=== PATIENT | female | born 1945 | race Caucasian/White ===

== ENCOUNTER 2018-03-08 15:54 | Emergency (ER) | payer MEDICARE ==
--- NOTE | 2018-03-08 16:27 | UC ---
Abdominal Pain Female HPI - HPI Summary HPI Summary: Started this morning with epigastric abdominal pain radiating around the sides and into the chest. Aching pain now becoming sharper. No SOB. Nausea with vomiting. No diarrhea. - History of Current Complaint Chief Complaint: UCGeneralIllness Stated Complaint: STOMACH AND PAIN Time Seen by Provider: 03/08/18 16:06 Hx Obtained From: Patient Onset/Duration: Sudden Onset, Lasting Hours - 5, Worse Since - onset Severity Initially: Mild Severity Currently: Severe Pain Intensity: 10 Location: Epigastric Radiates to: Flank, Chest Character: Aching, Sharp Aggravating Factor(s): Nothing Alleviating Factor(s): Nothing Associated Signs and Symptoms: Positive: Chest Pain, Nausea, Vomiting. Negative : Fever, Diarrhea Allergies/Adverse Reactions: Allergies Allergy/AdvReac Type Severity Reaction Status Date / Time cephalexin Allergy Hives Verified 03/08/18 16:04 dofetilide [From Tikosyn] Allergy Tachycardia Verified 03/08/18 16:04 moxifloxacin [From Avelox] Allergy Hives Verified 03/08/18 16:04 PMH/Surg Hx/FS Hx/Imm Hx Cardiovascular History: Hypertension, Atrial Fibrillation Respiratory History: COPD - Surgical History Surgical History: Yes Surgery Procedure, Year, and Place: HIATAL HERNIA. RIGHT SHOULDER SURGERY. CARDIOVERSION WITH ABLASION 08/2015-11/2015. DEVIATED SEPTUM. WISDOM TEETH. Rt BREAST BIOPSY - W/ BIOPSY CLIP. cataract. - Family History Known Family History: Positive: Diabetes - Social History Occupation: Retired Alcohol Use: Rare Substance Use Type: None Smoking Status (MU): Never Smoked Tobacco - Immunization History Most Recent Influenza Vaccination: refuses Most Recent Tetanus Shot: 2014 Most Recent Pneumonia Vaccination: at some point Review of Systems Gastrointestinal: Abdominal Pain, Vomiting, Nausea Is Patient Immunocompromised?: No All Other Systems Reviewed And Are Negative: Yes Physical Exam Triage Information Reviewed: Yes Appearance: Ill-Appearing, Pain Distress, Obese Vital Signs: Initial Vital Signs Temp 97.1 F 03/08/18 16:07 Pulse 69 03/08/18 16:07 Resp 17 03/08/18 16:07 BP 151/69 03/08/18 16:07 Pulse Ox 99 03/08/18 16:07 Vital Signs Reviewed: Yes Eyes: Positive: Conjunctiva Inflamed ENT: Positive: TMs normal Neck exam: Normal Respiratory Exam: Normal Cardiovascular Exam: Normal Abdomen Description: Negative: Nontender - Tender epigastric, McBurney's Point Tenderness, Peritoneal Signs Bowel Sounds: Positive: Present Musculoskeletal Exam: Normal Neurological Exam: Normal Psychological Exam: Normal Skin Exam: Normal Abd Pain Female Course/Dx - Differential Dx/Diagnosis Differential Diagnosis: ACS, Diverticulitis, Gall Bladder Disease, Pancreatitis , Renal Colic Provider Diagnoses: Acute epigatric abdominal pain - Physician Notification/Consults Discussed Care of Patient With: Dr. Owens Time Discussed With Above Provider: 16:36 Instructed by Provider To: Transfer - to [facility] by private car Discharge - Sign-Out/Discharge Documenting (check all that apply): Discharge/Admit/Transfer - Discharge Plan Condition: Guarded Disposition: TRANS HIGHER LVL OF CARE FAC Patient Education Materials: Acute Abdominal Pain (ED) Referrals: Aden Pickett MD [Primary Care Provider] - Additional Instructions: Go straight to the ER. - Billing Disposition and Condition Condition: GUARDED Disposition: Trans Higher Lvl of Care Fac
[2018-03-08 16:55] VITALS: BP 118/44
== END 2018-03-08 16:53 | disposition short-term general hospital (02) ==
LOC: UCCORT 15:54
DX: R10.13 Epigastric pain (principal); Z88.1 Allergy status to other antibiotic agents; Z88.8 Allergy status to other drugs, medicaments and biological substances; I10 Essential (primary) hypertension
CPT/HCPCS: 93005; 99213; G0463

== ENCOUNTER 2019-08-30 07:49 | Emergency (ER) | payer MEDICARE ==
[2019-08-30 08:06] VITALS: BP 166/72
--- NOTE | 2019-08-30 08:41 | UC ---
Throat Pain/Nasal Simon HPI - HPI Summary HPI Summary: 73 year old female with PMH + for successful ablation of a fib, hrt murmur, asthma (no meds, only problematic when sick) presents with night sweats x 2 weeks, sinus congestion, ear fullness, post nasal drip, sinus pressure/ pain x 5 days. no fever, ? chills. symptoms not improving. no recent ABX. on coumadin. Point Clear a "wheeze" last night, none now, no SOB, no chest pain - History of Current Complaint Chief Complaint: UCRespiratory Stated Complaint: SWEATING/CONGEST Time Seen by Provider: 08/30/19 08:07 Hx Obtained From: Patient ?: No Onset/Duration: Sudden Onset, Lasting Weeks Pain Intensity: 0 Pain Scale Used: 0-10 Numeric Cough: None - minimal Associated Signs & Symptoms: Positive: Sinus Discomfort, Nasal Discharge. Negative: Dysphagia, Drooling, Wheezing, Hoarseness, Fever, Vomiting, Rash - Allergies/Home Medications Allergies/Adverse Reactions: Allergies Allergy/AdvReac Type Severity Reaction Status Date / Time cephalexin Allergy Hives Verified 08/30/19 07:58 dofetilide [From Tikosyn] Allergy Tachycardia Verified 08/30/19 07:58 moxifloxacin [From Avelox] Allergy Hives Verified 08/30/19 07:58 Home Medications: Home Medications Calc/D3/Magnes/B6/Zn/Cu/Ann [[facility] Calcium Cit-Vit D3-Mag Tab] 1 tab PO DAILY 08/30/19 [History Confirmed 08/30/19] Cyanocobalamin TAB* [Vitamin B12 TAB*] 500 mcg PO DAILY 08/30/19 [History Confirmed 08/30/19] Famotidine TAB* [Pepcid 20 MG TAB*] 20 mg PO DAILY 08/30/19 [History Confirmed 08/30/19] Valsartan TAB* [Diovan TAB*] 80 mg PO DAILY 08/30/19 [History Confirmed 08/30/19 ] PMH/Surg Hx/FS Hx/Imm Hx Previously Healthy: Yes - cardiac history Cardiovascular History: Cardiac Disease, Atrial Fibrillation - controlled Respiratory History: Pneumonia - ~ 5 years ago - Surgical History Surgical History: Yes Surgery Procedure, Year, and Place: HIATAL HERNIA, RIGHT SHOULDER SURGERY, CARDIOVERSION WITH ABLASION 08/2015-11/2015, DEVIATED SEPTUM, WISDOM TEETH, Rt BREAST BIOPSY - W/ BIOPSY CLIP. Bilat cataract., R knee- benign tumor removed - Family History Known Family History: Positive: Diabetes, Respiratory Disease - sister with COPD , Non-Contributory - Social History Occupation: Retired Alcohol Use: Rare Substance Use Type: None Smoking Status (MU): Never Smoked Tobacco - Immunization History Most Recent Influenza Vaccination: refuses Most Recent Tetanus Shot: 2014 Most Recent Pneumonia Vaccination: at some point Review of Systems All Other Systems Reviewed And Are Negative: Yes Constitutional: Positive: Chills. Negative: Fever, Fatigue Skin: Positive: Negative ENT: Positive: Sore Throat, Ear Ache, Nasal Discharge, Sinus Congestion, Sinus Pain/Tenderness Respiratory: Positive: Other - wheeze. Negative: Shortness Of Breath, Cough Neurological: Positive: Negative Psychological: Positive: Negative Is Patient Immunocompromised?: No Physical Exam Triage Information Reviewed: Yes Appearance: No Pain Distress, Well-Nourished, Ill-Appearing - minimal Vital Signs: Initial Vital Signs Temp 98.2 F 08/30/19 08:03 Pulse 69 08/30/19 08:03 Resp 18 08/30/19 08:03 BP 166/72 08/30/19 08:03 Pulse Ox 97 08/30/19 08:03 Vital Signs Reviewed: Yes Eyes: Positive: Conjunctiva Clear ENT: Positive: Hearing grossly normal, Pharynx normal, Nasal congestion, Nasal drainage, TMs normal, Sinus tenderness - max b/l, Uvula midline. Negative: Pharyngeal erythema, TM bulging, TM dull, TM red, Tonsillar swelling, Tonsillar exudate, Trismus, Muffled voice, Hoarse voice Neck: Positive: Supple, Nontender, No Lymphadenopathy. Negative: Nuchal Rigidity, Enlarged Nodes @ Respiratory: Positive: Chest non-tender, Lungs clear, Normal breath sounds, No respiratory distress, No accessory muscle use. Negative: Respiratory distress, Crackles, Rhonchi, Stridor, Wheezing Cardiovascular: Positive: RRR, No Murmur Abdomen Description: Negative: CVA Tenderness (R), CVA Tenderness (L) Neurological Exam: Normal Psychological Exam: Normal Skin Exam: Normal Throat Pain/Nasal Course/Dx - Course Course Of Treatment: Sinusitis: - Hold your calcium tablets while taking antibiotics - Blood work drawn, results should return within 1-2 days - Follow up with Dr. Kaba if no improvement within 2-3 days - GO to ER with increased shortness of breath, difficulty breathing, increased pain, fever. - Antibiotics as directed- may interfere with your coumadin levels- notify your provider. - Increase fluid intake - Increase rest - Over the counter medications for decongestion, symptom relief. Urine +- awaiting cultures - Differential Dx/Diagnosis Differential Diagnosis/HQI/PQRI: Otitis Media, Sinusitis, Tonsillitis, URI Provider Diagnosis: Sinusitis Discharge ED - Sign-Out/Discharge Documenting (check all that apply): Patient Departure All imaging exams completed and their final reports reviewed: No Studies - Discharge Plan Condition: Good Disposition: HOME Prescriptions: DOXYcycline CAP(*) [DOXYcycline 100MG CAP(*)] 100 mg PO BID #20 cap Patient Education Materials: Sinusitis (ED) Referrals: Aden Pickett MD [Primary Care Provider] - Additional Instructions: - Hold your calcium tablets while taking antibiotics - Blood work drawn, results should return within 1-2 days - Follow up with Dr. Kaba if no improvement within 2-3 days - GO to ER with increased shortness of breath, difficulty breathing, increased pain, fever. - Antibiotics as directed- may interfere with your coumadin levels- notify your provider. - Increase fluid intake - Increase rest - Over the counter medications for decongestion, symptom relief. - Awaiting for urine cultures - Billing Disposition and Condition Condition: GOOD Disposition: Home - Attestation Statements Provider Attestation: Per institutional requirements, I have reviewed the chart, however, I was not consulted specifically or made aware of this patient by the midlevel provider. I did not personally evaluate, interact with , or disposition this patient.
--- OUTSIDE RECORDS SUMMARY | 2019-08-30 09:19 | XMS REPORT | Continuity of Care Document ---
:1945 External Reference #:[id number] Author Name Brandin Javed MD Address [address] [place] [address] Care Team Providers Name Role Phone Aedn Pickett MD - Family Medicine Care Team Information Program Instructor Problems Active Problems Provider Date Benign essential hypertension Onset: 08/08/2016 Social History Type Date Description Comments Sex Unknown ETOH Use Denies alcohol use Tobacco Use Start: Unknown Patient has never smoked Recreational Drug Use Never Used Drugs Smoking Status Reviewed: 07/15/19 Patient has never smoked Exercise Type/Frequency Exercises regularly walking Allergies, Adverse Reactions, Alerts Active Allergies Reaction Severity Comments Date Avelox 08/08/2016 Tikosyn 08/08/2016 Mold 08/08/2016 Dust 08/08/2016 Trees 08/08/2016 Grass 08/08/2016 Sotalol 08/08/2016 Multaq 08/08/2016 Medications Active Medications SIG Qnty Indications Ordering Provider Date Dorzolamide HCL instill one drop 10ml H40.052 Brandin Javed MD 01/25/2019 2% left eye two Solution times a day. Losartan Potassium 1 po qd Unknown 100mg Tablets Lansoprazole 1 po qd Unknown 30mg Capsules DR Potassium Chloride ER 1 po qd Unknown 10Meq Tablets ER Warfarin Sodium 2 tablets mon, Unknown 2.5mg wed, fri, sat 1 Tablets tablet sun, tues, thurs Furosemide 1 po bid Unknown 20mg Tablets Cartia XT 1 po bid Unknown 120mg Caps ER 24HR Align 1 caps by mouth Unknown 4mg Capsules every day every morning Tylenol 8 Hour 1 tab by mouth Unknown Arthritis Pain every 6 hours 650mg pain, as needed Tablets ER Ranitidine 150 Maximum 1 by mouth every Unknown Strength day 150mg Tablets Immunizations Description No Information Available Vital Signs Date Vital Result Comment 04/08/2018 9:54am BP Systolic 124 mmHg BP Diastolic 86 mmHg Heart Rate 72 /min Respiratory Rate 17 /min Height 63 inches 5'3" Weight 215.00 lb BMI (Body Mass Index) 38.1 kg/m2 BSA (Body Surface Area) 1.99 m2 Brock body weight in kilograms 52 kg O2 % BldC Oximetry 97 % Results Description No Information Available Procedures Date Code Description Status 07/15/2019 08872 Eye Exam Est Patient Comprehensive Completed 03/08/2019 84842 Scanning Computerized Ophthalmic Diagnostic Imaging, Completed Posterior 03/08/2019 37997 Visual Field Exam Extended, Unilateral Or Bilateral Completed 03/08/2019 53236 Eye Exam Est Patient Comprehensive Completed 01/25/2019 98067 Eye Exam Est Patient Comprehensive Completed Medical Devices Description No Information Available Encounters Description No Information Available Assessments Date Code Description Provider 07/15/2019 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, left eye Brandin Javed MD 07/15/2019 H34.8120 Central retinal vein occlusion, left eye, with Brandin Javed MD macular edema 07/15/2019 Z96.1 Presence of intraocular lens Brandin Javed MD 03/08/2019 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, left eye Brandin Javed MD 03/08/2019 H34.8120 Central retinal vein occlusion, left eye, with Brandin Javed MD macular edema 03/08/2019 Z96.1 Presence of intraocular lens Brandin Javed MD 01/25/2019 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 Morillo as has been mentioned and previously arrangedLarge cyst present and literature indicate simple cysts are not malignant concern however position and size of this actually displaces the right kidney.Images reviewed with Alvina. Questions addressed. She reports she satisfied with the explanation offered here and we' ll continue to follow up with Dr. Morillo ( gastroenterology [facility]) . Continue to follow. As needed for this specific issue as the experience technically desirable butnecessary in addressing this sort of surgical issue isn't present here at the time being. Functional Status Description No Information Available Mental Status Description No Information Available Referrals Description No Information Available
[2019-08-30 14:56] LABS: ABS Basophils 0.1 10^3/ul (0-0.2); ABS Eosinophils 0.3 10^3/ul (0-0.6); ABS Lymphocytes 0.8 10^3/ul (1.0-4.8); ABS Monocytes 0.7 10^3/ul (0-0.8); ABS Neutrophils 4.2 10^3/ul (1.5-7.7); Eosinophil % 5.6 %; Hematocrit 39 % (35-47); Lymphocyte % 13.5 %; Mean Corpuscular HGB Conc 33 g/dL (31-36); Mean Corpuscular Hemoglobin 31 pg (27-31); Mean Corpuscular Volume 94 fL (80-97); Mean Platelet Volume 8.9 fL (7.4-10.4); Nucleated Red Blood Cells % 0.1; Platelet Count 246 10^3/uL (150-450); Red Blood Count 4.18 10^6 /uL (3.70-4.87); Red Cell Distribution Width 15 % (10-15); White Blood Count 6.2 10^3/uL (3.5-10.8)
[2019-08-30 16:37] LABS: TSH (Thyroid Stimulating Horm) 1.55 mcIU/mL (0.34-5.60)
[2019-08-30 18:28] LABS: Albumin 4.3 g/dL (3.2-5.2); Calcium 9.2 mg/dL (8.6-10.3); Potassium 4.8 mmol/L (3.5-5.0); Total Bilirubin 0.5 mg/dL (0.2-1.0)
[2019-08-30 18:34] LABS: Albumin/Globulin Ratio 1.9 (1-3); BUN/Creatinine Ratio 20.4 (8-20); EGFR African American 60.2 (>60); EGFR Non-African American 49.7 (>60); Globulin 2.3 g/dL (2-4); Total Protein 6.6 g/dL (6.4-8.9)
== END 2019-08-30 09:11 | disposition home or self-care (01) ==
LOC: UCCORT 07:49
DX: J32.9 Chronic sinusitis, unspecified (principal); J02.9 Acute pharyngitis, unspecified; Z88.1 Allergy status to other antibiotic agents; Z88.8 Allergy status to other drugs, medicaments and biological substances
CPT/HCPCS: 36415; 80053; 81003; 83880; 84443; 85025; 87086; 99212; G0463

== ENCOUNTER 2019-10-07 08:05 | Emergency (ER) | payer MEDICARE ==
--- OUTSIDE RECORDS SUMMARY | 2019-10-07 08:15 | XMS REPORT | Continuity of Care Document ---
:1945 External Reference #:[id number] Author Name Marta Fam N.P. 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 Onset: 10/27/2015 Asthma Guevara Godinez M.D. Onset: 10/27/2015 Disturbance in sleep behavior Ely Chaidez MD Onset: 11/27/2015 Obesity Ely Chaidez MD Onset: 11/27/2015 Obstructive sleep apnea syndrome Ely Chaidez MD Onset: 03/04/2016 Disorder of lung Ely Chaidez MD Onset: 03/04/2016 Liver cyst Ely Chaidez MD Onset: 05/20/2016 Full respiratory system examination Ely Chaidez MD Onset: 04/01/2017 Social History Type Date Description Comments Sex Unknown Tobacco Use Start: Unknown Never Smoked Cigarettes Tobacco Use Start: Unknown Never Smoked Cigars Tobacco Use Start: Unknown Never Smoked A Pipe Smokeless Tobacco Never Used Smokeless Tobacco ETOH Use Denies alcohol use Recreational Drug Use Denies Drug Use Tobacco Use Start: Unknown Patient has never smoked Smoking Status Reviewed: 09/28/19 Patient has never smoked Exercise Type/Frequency Exercises sporadically short walks with dog twice a day Allergies, Adverse Reactions, Alerts Active Allergies Reaction Severity Comments Date Avelox hives 03/13/2010 Sotalol Pt states this medication 11/27/2015 makes her heart race Multaq Nausea and Vomiting 12/08/2015 Tikosyn 05/20/2016 Cephalexin loose stools Mild 09/24/2017 Medications Active Medications SIG Qnty Indications Ordering Date Provider Estradiol apply 1 gram 42.500gm Martha Ramirez.Najma. 09/28/2019 0.1mg/GM daily x 2 weeks Cream and then apply twice weekly Warfarin Sodium take 2 tabs on 150tabs Guevara D. 07/24/2018 2.5mg mondays and Brand, M.DHeidy Tablets friday and 1 1/2 tabs by mouth all other days and as directed Cartia XT 1 by mouth in the 90caps Guevara D. 06/20/2016 120mg Caps in the morning Brand M.D. ER 24HR Potassium Chloride one tab by mouth 90tabs I48.1 Guevara D. 02/08/2016 Ariadna ER every day Brand, M.D. 10Meq Tablets ER Vitamin B12 500 mcg daily Unknown Dorzolamide HCL 1 drop in left Unknown 2% eye twice daily Solution Wnc-Coc-Pazo-D 1 tab by mouth Unknown once daily Tablets Cpap for use while Unknown Device sleeping Valsartan 1 by mouth every Unknown 80mg day Tablets Famotidine 1 by mouth once a 60tabs Unknown 40mg day Tablets Acidophilus 1 cap daily Unknown Probiotic 10mg Capsules Medications Administered in Office Medication SIG Qnty Indications Ordering Provider Date No Injection Ankit Whittington MD 01/14/2017 Injection Depomedrol 40MG Ankit Whittington MD 08/01/2016 Injection Immunizations Description No Information Available Vital Signs Date Vital Result Comment 09/28/2019 11:10am Height 63 inches 5'3" Weight 223.19 lb Heart Rate 61 /min BP Systolic 169 mmHg BP Diastolic 81 mmHg O2 % BldC Oximetry 98 % BMI (Body Mass Index) 39.5 kg/m2 04/21/2019 1:47pm Height 63 inches 5'3" Weight 224.00 lb Heart Rate 65 /min BP Systolic Sitting 130 mmHg Lue lg cuff BP Diastolic Sitting 77 mmHg Lue lg cuff BP Systolic Standing 133 mmHg Lue lg cuff BP Diastolic Standing 79 mmHg Lue lg cuff Respiratory Rate 18 /min BMI (Body Mass Index) 39.7 kg/m2 Ejection Fraction 50-55% Echo 05/08/16 Results Test Acquired Date Facility Test Result H/L Range Note Inr/Protime 09/23/2019 [facility] Inr 2.54 High 0.82-1.[address] [place] [address] [phone] Inr/Protime 09/13/2019 [facility] Inr 3.04 High 0.82-1.[address] [place], [place] [id number] [phone] Inr/Protime 09/02/2019 [facility] Inr 3.31 High 0.82-1.[address] [place] [address] [phone] CBC Auto 08/30/2019 [facility] White Blood 6.2 10^3/uL Normal 3.5-10.[address] [place] [address] [phone] Red Blood Count 4.18 10^6/uL Normal 3.70-4.87 Hemoglobin 13.0 g/dL Normal 12.0-16.0 Hematocrit 39 % Normal 35-47 Mean Corpuscular Volume 94 fL Normal 80-97 Mean Corpuscular Hemoglobin 31 pg Normal 27-31 Mean Corpuscular HGB Conc 33 g/dL Normal 31-36 Red Cell Distribution Width 15 % Normal 10-15 Platelet Count 246 10^3/uL Normal 150-450 Mean Platelet Volume 8.9 fL Normal 7.4-10.4 Abs Neutrophils 4.2 10^3/uL Normal 1.5-7.7 Abs Lymphocytes 0.8 10^3/uL Low 1.0-4.8 Abs Monocytes 0.7 10^3/uL Normal 0-0.8 Abs Eosinophils 0.3 10^3/uL Normal 0-0.6 Abs Basophils 0.1 10^3/uL Normal 0-0.2 Abs Nucleated RBC 0.0 10^3/uL Granulocyte % 68.5 % Lymphocyte % 13.5 % Monocyte % 11.5 % Eosinophil % 5.6 % Basophil % 0.9 % Nucleated Red Blood Cells % 0.1 Laboratory test 08/30/2019 [facility] B-Type 62 pg/mL <=[address] [place] [address] Peptide BNP [phone] TSH (Thyroid Stim Horm) 1.55 mcIU/mL Normal 0.34-5.60 6 Comp Metabolic 08/30/2019 [facility] Sodium 137 mmol/L Normal 135-[address] [place] [address] [phone] Potassium 4.8 mmol/L Normal 3.5-5.0 Chloride 104 mmol/L Normal 101-111 Co2 Carbon Dioxide 22 mmol/L Normal 22-32 Anion Gap 11 mmol/L Normal 2-11 Calcium 9.2 mg/dL Normal 8.6-10.3 Albumin 4.3 g/dL Normal 3.2-5.2 Total Bilirubin 0.50 mg/dL Normal 0.2-1.0 Glucose 101 mg/dL High 70-100 Blood Urea Nitrogen 22 mg/dL Normal 6-24 Creatinine 1.08 mg/dL High 0.51-0.95 BUN/Creatinine Ratio 20.4 High 8-20 Total Protein 6.6 g/dL Normal 6.4-8.9 Globulin 2.3 g/dL Normal 2-4 Albumin/Globulin Ratio 1.9 Normal 1-3 Alkaline Phosphatase 81 U/L Normal 34-104 Alt 20 U/L Normal 7-52 Ast 22 U/L Normal 13-39 Egfr Non- 49.7 >60 Egfr 60.2 >60 7 Urine Culture And 08/30/2019 [facility] Urine Culture SEE RESULT 8, [address] [place] [address] [phone] Laboratory test 04/26/2019 [facility] Potassium 5.0 mmol/L Normal 3.5- finding [address] 5.0 [place] [address] [phone] Order 04/21/2019 [facility] In-House EKG <pending> 1 Standard intensity warfarin therapeutic range: 2.0-3.0 High intensity warfarin therapeutic range: 2.5-3.5 2 Standard intensity warfarin therapeutic range: 2.0-3.0 High intensity warfarin therapeutic range: 2.5-3.5 3 Standard intensity warfarin therapeutic range: 2.0-3.0 High intensity warfarin therapeutic range: 2.5-3.5 4 [id number] 5 [id number] 6 [id number] 7 Because ethnic data is not always readily available, this report includes an eGFR for both -Americans and non- Americans. The National Kidney Disease Education Program (NKDEP) does not endorse the use of the MDRD equation for patients that are not between the ages of 18 and 70, are , have extremes of body size, muscle mass, or nutritional status, or are non- or non-. According to the National Kidney Foundation, irrespective of diagnosis, the stage of the disease is based on the level of kidney function: Stage Description GFR(mL/min/1.73 m(2)) 1 Kidney damage with normal or decreased GFR 90 2 Kidney damage with mild decrease in GFR 60-89 3 Moderate decrease in GFR 30-59 4 Severe decrease in GFR 15-29 5 Kidney failure <15 (or dialysis) 8 [id number] 9 SEE RESULT BELOW Name: ALVINA BAEZ : [address]: Yahir Sam MD Acct: [id number] Unit: [id number] AGE: 73 Location: [facility] Re08/30/19 SEX: F Status: DEP ER SPEC: [id number] AVELINA: 08/30/19 [facility] DR: Jacinta LOW REQ: [id number] RECD: 08/30/19 STATUS: ANNIE BORRERO DR: Yahir Pickett MD _ SOURCE: URINE SPDESC: ORDERED: Urine Culture COMMENTS: [id number] Procedure Result Reported Site Urine Culture Final 08/31/19- 1412 ML No growth of clinically significant organisms * ML - Main Lab . END OF REPORT DEPARTMENT OF PATHOLOGY, [address] [place] [address] Cuong Tellez M.D. Director [facility] # [id number] Procedures Date Code Description Status 04/21/2019 41193 EKG Tracing & Interpretation Completed 09/22/2018 [id number] Colonoscopy Completed 09/22/2018 [id number] Mammogram Completed Medical Devices Description No Information Available Encounters Type Date Location Provider Dx Diagnosis Office Visit 04/21/2019 [facility] Guevara Kwong I48.0 Paroxysmal atrial 1:45p Of Jeanine Godinez M.D. fibrillation I10 Essential (primary) hypertension Assessments Date Code Description Provider 09/28/2019 N76.1 Subacute and chronic vaginitis Marta Fam N.P. 04/21/2019 I48.0 Paroxysmal atrial fibrillation Guevara Godinez M.D. 04/21/2019 I10 Essential (primary) hypertension Guevara Godinez M.D. Plan of Treatment Future Appointment(s):11/09/2019 9:00 am - William Slater MD at [facility] at [facility]/07/2020 - Marta Fam N.P.N76.1 Subacute and chronic vaginitisComments:Plan to start estradiol every night for two weeks and then about twice weekly. I will get the records from your prior physician's office to see the biopsy results. Plan to re-eval in 4-6 weeks. If you continue to have symptoms without a clear etiology, will refer to crisis clinician. Functional Status Description No Information Available Mental Status Description No Information Available Referrals Description No Information Available
--- OUTSIDE RECORDS SUMMARY | 2019-10-07 08:15 | XMS REPORT | Continuity of Care Document ---
:1945 External Reference #:[id number] Author Name Brandin Javed MD (transmitted by agent of provider Elisabeth Martin) Address [address] [place] [id number] Care Team Providers Name Role Phone Aden Pickett MD - Family Medicine Care Team Information Scagliola Mechanic [phone] Problems Active Problems Provider Date Benign essential [...] kg/m2 BSA (Body Surface Area) 1.99 m2 Low[place] body weight in kilograms 52 kg O2 % BldC Oximetry 97 % Results Description No Information Available Procedures Date Code Description Status 07/15/2019 59746 Eye Exam Est Patient Comprehensive Completed 03/08/2019 54402 Scanning Computerized Ophthalmic Diagnostic Imaging, Completed Posterior 03/08/2019 06535 Visual Field Exam Extended, Unilateral Or Bilateral Completed 03/08/2019 40471 Eye Exam Est Patient Comprehensive Completed Medical [...] Central retinal vein occlusion, left eye, with Bradnin Javed MD macular edema 03/08/2019 Z96.1 Presence of intraocular lens Brandin Javed MD Plan of Treatment Future Appointment(s):11/15/2019 8:15 am - Brandin Javed MD at [facility]/ 18/2018 - Gianfranco Chew M.D.R93.2 Abnormal findings [...] follow up with Dr. Morillo ( gastroenterology [place]) . Continue to follow. As needed for this specific issue as the experience technically desirable butnecessary in addressing this sort of surgical issue isn't present here at the time being. Functional Status Description No Information Available Mental Status Description No Information Available Referrals Description No Information Available
--- OUTSIDE RECORDS SUMMARY | 2019-10-07 08:15 | XMS REPORT | Continuity of Care Document ---
:1945 External Reference #:[id number] Author Name Brandin Javed MD Address [address] [place] [address] Care Team Providers Name Role Phone Aden Pickett MD - Family Medicine Care Team Information Member Service Representative Problems Active Problems Provider Date Benign essential hypertension Onset: 08/08/2016 Social History Type Date Description Comments Sex Unknown ETOH Use Denies alcohol use Tobacco Use Start: Unknown Patient has never smoked Recreational Drug Use Never Used Drugs Smoking Status Reviewed: 10/01/19 Patient has never smoked Exercise Type/Frequency Exercises [...] kg/m2 BSA (Body Surface Area) 1.99 m2 [place] body weight in kilograms 52 kg O2 % BldC Oximetry 97 % Results Description No Information Available Procedures Date Code Description Status 10/01/2019 00708 Scanning Computerized Ophthalmic Diagnostic Imaging, Completed Posterior 10/01/2019 85995 Visual Field Exam Extended, Unilateral Or Bilateral Completed 10/01/2019 01821 Eye Exam Est Patient Comprehensive Completed 07/15/2019 67750 Eye Exam Est Patient Comprehensive Completed Medical Devices Description No Information Available Encounters Description No Information Available Assessments Date Code Description Provider 10/01/2019 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, left eye Brandin Javed MD 10/01/2019 H34.8120 Central retinal vein occlusion, left eye, with Brandin Javed MD macular edema 07/15/2019 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 Morillo as has been mentioned and previously arrangedLarge cyst present and literature indicate simple cysts are not malignant concern however position and size of this actually displaces the right kidney.Images reviewed with Alvina. Questions addressed. She reports she satisfied with the explanation offered here and we'll continue to follow up with Dr. Morillo ( gastroenterology [place]) . Continue to follow. As needed for this specific issue as the experience technically desirable butnecessary in addressing this sort of surgical issue isn't present here at the time being. Functional Status Description No Information Available Mental Status Description No Information Available Referrals Description No Information Available
--- OUTSIDE RECORDS SUMMARY | 2019-10-07 08:15 | XMS REPORT | Continuity of Care Document ---
:1945 External Reference #:[id number] Author Name Marta Fam N.P. (transmitted by agent of provider Estelita Junior) Address [address] [facility], [place] [address] Care Team Providers Name Role Phone Aden Pickett MD - Family Medicine Care Team Information Chief Nursing Officer [phone] William Slater MD - Obstetrics & Care Team Information Chief Nursing Officer Gynecology Problems Active Problems Provider Date Atrial fibrillation [...] this medication 11/27/2015 makes her heart race Binu Nausea and Vomiting 12/08/2015 Tikosyn 05/20/2016 Cephalexin loose stools Mild 09/24/2017 Medications Active Medications SIG Qnty Indications Ordering Date Provider Estradiol apply 1 gram 42.500gm Marta Fam, N.P. 09/28/2019 0.1mg/GM daily x 2 weeks Cream and then apply twice weekly Yuvafem insert 1 tab once 30tabs Marta Fam, N.P. 09/28/2019 10mcg Tablets daily for 2 weeks, then one table twice weekly Warfarin Sodium take 2 tabs on 150tabs Guevara D. 07/24/2018 2.5mg mondays and Shasha Godinez Tablets friday and 1 1/2 tabs by mouth all other days and as directed Cartia XT 1 by mouth in the 90caps Guevara D. 06/20/2016 120mg Caps in the morning Shasha Godinez ER 24HR Potassium Chloride one tab by mouth 90tabs I48.1 Guevara D. 02/08/2016 Ariadna ER every day Shasha Godinez 10Meq Tablets ER Vitamin B12 500 mcg daily Unknown Dorzolamide HCL 1 drop in left Unknown 2% eye twice daily Solution Tax-Toh-Ybyn-D 1 tab by mouth Unknown once daily [...] Date Facility Test Result H/L Range Note Urine Culture And 09/28/2019 [facility] Urine SEE RESULT [address] [place] [address] [phone] Urinalysis Profile 09/28/2019 [facility] Urine Color Straw [address] [place] [address] [phone] Urine Appearance Clear Urine Specific Grahn 1.004 Low 1.010-1.030 Urine pH 6.0 Normal 5-9 Urine Urobilinogen Negative Negative Urine Ketones Negative Negative Urine Protein Negative Negative Urine Leukocytes Trace Abnormal Negative Urine Blood Negative Negative Urine Nitrite Negative Negative Urine Bilirubin Negative Negative Urine Glucose Negative Negative Urine White Blood Cell Trace(0-5/hpf) Absent Urine Red Blood Cell Absent Absent Urine Bacteria Absent Absent Urine Squamous Epithelial Cell Present Abnormal Absent Inr/Protime 09/23/2019 [facility] Inr 2.54 High 0.82-1.[address] [place] [address] [phone] Inr/Protime 09/13/2019 [facility] Inr 3.04 High 0.82-1.[address] [place] [address] [phone] Inr/Protime 09/02/2019 [facility] Inr 3.31 High 0.82-1.[address] [place] [address] [phone] CBC Auto Diff 08/30/2019 [facility] White Blood 6.2 Normal 3.5 -10.[address] Count 10^3/[place] [address] [phone] Red Blood Count 4.18 10^6/uL Normal 3.70-4.87 [...] Blood Cells % 0.1 Laboratory test 08/30/2019 [facility] B-Type 62 pg/mL <=100 [address] [place] [address] Peptide BNP [phone] TSH (Thyroid Stim Horm) 1.55 mcIU/mL Normal 0.34-5.60 7 Comp Metabolic 08/30/2019 [facility] Sodium 137 mmol/L Normal 135-[address] [place] [address] [phone] Potassium 4.8 mmol/L Normal 3.5-5.0 Chloride 104 [...] Egfr Non- 49.7 >60 Egfr 60.2 >60 8 Urine Culture And 08/30/2019 [facility] Urine Culture SEE RESULT 9, [address] [place] [address] [phone] Laboratory test 04/26/2019 [facility] Potassium 5.0 mmol/L Normal 3.5- finding [address] 5.0 [place] [address] [phone] Order 04/21/2019 [facility] In-House EKG <pending> 1 SEE RESULT BELOW Name: TANAFEDERICOALVINA : [address]: Marta Fam ATTENDANT HONOR BAR Acct: [id number] Unit: [id number] AGE: 73 Location: [facility] Re09/28/19 SEX: F Status: REG REF SPEC: [id number] AVELINA: 09/28/19-[address]: Marta Fam ATTENDANT [employer]ONOR BAR REQ: [id number] RECD: 09/28/19 STATUS: COMP _ SOURCE: URINE SPDESC: ORDERED: Urine Culture COMMENTS: [id number] Urine Source: Random Procedure Result Reported Site Urine Culture Final 09/29/19- 1449 ML No Growth (<1,000 CFU/mL) * ML - Main Lab . END OF REPORT DEPARTMENT OF PATHOLOGY, [address] [place] [address] Cuong Tellez M.D. Director [facility] # [id number] 2 Standard intensity warfarin therapeutic range: 2.0-3.0 High intensity warfarin therapeutic range: 2.5-3.5 3 Standard intensity warfarin therapeutic range: 2.0-3.0 High intensity warfarin therapeutic range: 2.5-3.5 4 Standard intensity warfarin therapeutic range: 2.0-3.0 High intensity warfarin therapeutic range: 2.5-3.5 5 [id number] 6 [id number] 7 [id number] 8 Because ethnic data is not always readily [...] 15-29 5 Kidney failure <15 (or dialysis) 9 [id number] 10 SEE RESULT BELOW Name: ALVINA BAEZ : [address]: Yahir Sam MD Acct: [id number] Unit: [id number] AGE: 73 Location: [facility] Re08/30/19 SEX: F Status: DEP ER SPEC: [id number] AVELINA: 08/30/19 [facility] DR: Jacinta LOW REQ: [id number] RECD: 08/30/19 STATUS: ANNIE BORRERO DR: Yahir Pickett MD _ SOURCE: URINE SPDESC: ORDERED: Urine Culture COMMENTS: [id number] Procedure Result Reported Site Urine Culture Final 08/31/19- 1412 ML No growth of clinically significant organisms * ML - Main Lab . END OF REPORT DEPARTMENT OF PATHOLOGY, [address] [place] [address] Cuong Tellez M.D. Director [facility] # [id number] Procedures Date Code Description Status 04/21/2019 38059 EKG Tracing & Interpretation Completed 09/22/2018 [id number] Colonoscopy Completed 09/22/2018 [id number] Mammogram Completed Medical Devices Description No Information Available Encounters Type Date Location Provider Dx Diagnosis Office Visit 04/21/2019 [facility] Guevara Kwong I48.0 Paroxysmal atrial 1:45p Of Jeanine Godinez M.D. fibrillation I10 Essential (primary) hypertension Assessments Date Code Description Provider 09/28/2019 N76.1 Subacute and chronic vaginitis Marta Fam N.P. 04/21/2019 I48.0 Paroxysmal atrial fibrillation Guevara Godinez M.D. 04/21/2019 I10 Essential (primary) hypertension Guevara Godinez M.D. Plan of Treatment Future Appointment(s):10/27/2019 11:40 am - Marta Fam NMarcella at [facility]11/09/2019 9:00 am - William Slater MD at [facility] at Mmzkgpbi01/07/2020 - Marta Fam N.P.N76.1 Subacute and chronic vaginitisComments:Plan to start estradiol every night for two weeks and then about twice weekly. I will get the records from your prior physician's office to see the biopsy results. Plan to re-eval in 4-6 weeks. If you continue to have symptoms without a clear etiology, will refer to carpet inspector. Functional Status Description No Information Available Mental Status Description No Information Available Referrals Description No Information Available
--- OUTSIDE RECORDS SUMMARY | 2019-10-07 08:15 | XMS REPORT | Continuity of Care Document ---
:1945 External Reference #:[id number] Author Name MARANDA Barnett Address [address] [place] [address] Care Team Providers Name Role Phone Cristian Abdullahi MD - Otolaryngology Care Team Information Salesperson Shoes Problems Active Problems Provider Date Gastroesophageal reflux disease Reinier Mahajan M.D. Onset: 12/19/2007 Asthma without status asthmaticus Reinier Mahajan M.D. Onset: 12/19/2007 Allergic condition Reinier Mahajan M.D. Onset: 12/19/2007 Hyperlipidemia Reinier Mahajan M.D. Onset: 12/19/2007 Benign essential hypertension Reinier Mahajan M.D. Onset: 12/19/2007 Vaginitis and vulvovaginitis Aden Pickett M.D. Onset: 11/12/2011 Acute bronchitis Aden Pickett M.D. Onset: 01/17/2015 Essential hypertension Aden Pickett M.D. Onset: 08/22/2015 Persistent atrial fibrillation Aden Pickett M.D. Onset: 09/11/2015 Long-term current use of anticoagulant Aden Pickett M.D. Onset: 2015 Paroxysmal atrial fibrillation Aden Pickett M.D. Onset: 12/05/2015 Persistent atrial fibrillation Aden Pickett M.D. Onset: 02/05/2016 Dyspnea Aden Pickett M.D. Onset: 05/14/2016 Knee pain Aden Pickett M.D. Onset: 07/02/2016 Sleep apnea Aden Pickett M.D. Onset: 07/28/2018 Mild intermittent asthma Aden Pickett M.D. Onset: 07/28/2018 Malaise and fatigue Aden Pickett M.D. Onset: 09/13/2019 Social History Type Date Description Comments Sex Unknown Tobacco Use Start: Unknown Nonsmoker Smoking Status Reviewed: 10/05/19 Nonsmoker Tobacco Use Start: Unknown nonsmoker Allergies, Adverse Reactions, Alerts Active Allergies Reaction Severity Comments Date Amoxil,Trimox Rash 02/01/1999 Keflex 05/16/2009 Avelox HIVES 05/14/2010 Tetanus cough-skin reaction 02/21/2014 Medications Active Medications SIG Qnty Indications Ordering Provider Date Xifaxan 1 tablet three 9tabs K21.9 Avery Chan, 10/05/2019 200mg Tablets times a day for 3 M.D. days. Valsartan 1 by mouth every 30tabs Aden Vergara 06/24/2019 80mg Tablets day Shasha Pickett Warfarin Sodium take two tablets 60tabs FAHAD Garcia 11/28/2015 2.5mg by mouth every Tablets day or as directed Vitamin B12 1 by mouth every Unknown Tablets day otc Potassium Chloride ER 1 by mouth every Unknown day 10Meq Tablets ER Cardizem ER 1 po qam Unknown 120mg Tablets Dorzolamide HCL one drop to left Unknown 2% eye twice daily Solution Probiotic Acidophilus 1 by mouth once a Unknown day Capsules Omeprazole 1 by mouth every Unknown 40mg day Capsules DR Dacia Medications Pepcid 1 by mouth bid 60tabs Aden Pickett, 08/09/2019 - 20mg Tablets M.D. 10/05/2019 Immunizations CPT Code Status Date Vaccine Lot # [id number] Given 01/29/2014 Tdap Tetanus, W Pertussis [id number] Given 07/17/2011 Pneumococcal Immunization [id number] Vital Signs Date Vital Result Comment 10/05/2019 9:44am BP Systolic 134 mmHg BP Diastolic 82 mmHg Heart Rate 80 /min Body Temperature 98.2 F Respiratory Rate 16 /min Height 62.5 inches 5'2.50" measured Weight 221.00 lb BMI (Body Mass Index) 39.8 kg/m2 09/13/2019 2:21pm BP Systolic 128 mmHg BP Diastolic 78 mmHg Heart Rate 66 /min Body Temperature 97.9 F Respiratory Rate 16 /min Height 62.5 inches 5'2.50" measured Weight 223.00 lb BMI (Body Mass Index) 40.1 kg/m2 Results Test Acquired Date Facility Test Result H/L Range Note CBC Auto Diff 08/30/2019 [facility] White Blood 6.2 10^3/uL Normal 3.5-10.8 1 Count Red Blood Count 4.18 10^6/uL Normal 3.70-4.87 [...] Red Blood Cells % 0.1 Laboratory test finding 08/30/2019 [facility] B-Type Natriuretic Peptide 62 pg/mL <=100 2 BNP TSH (Thyroid Stim Horm) 1.55 mcIU/mL Normal 0.34-5.60 3 Comp Metabolic Panel 08/30/2019 [facility] Sodium 137 mmol/L Normal 135-145 Potassium 4.8 mmol/L Normal 3.5-5.0 Chloride 104 [...] Egfr Non- 49.7 >60 Egfr 60.2 >60 4 Poc Urinalysis 08/30/2019 [facility] Poc Glucose, Urine NEGATIVE Negative Poc Bilirubin, Urine NEGATIVE Negative Poc Ketone, Urine NEGATIVE Negative Poc Specific [place], Urine 1.010 Normal 1.010-1.030 Poc Blood, Urine TRACE-INTACT Negative 5 Poc pH, Urine 5.0 Normal 5-9 Poc Protein, Urine NEGATIVE Negative Poc Urobilinogen, Urine 0.2 Negative Poc Nitrite, Urine NEGATIVE Negative Poc Leukocytes, Urine 2+ Abnormal Negative Poc Color, Urine YELLOW Poc Clarity, Urine SLIGHTLY CLOUDY Urine Culture And 08/30/2019 [facility] Urine Culture SEE RESULT BELOW 6, 7 Sensitivities 1 [id number] 2 [id number] 3 [id number] 4 Because ethnic data is not always readily [...] 15-29 5 Kidney failure <15 (or dialysis) 5 Heat Treater Head: [id number] 6 [id number] 7 SEE RESULT BELOW Name: ALVINA BAEZ Aaron : [address]: Yahir Sam MD Acct: [id number] Unit: [id number] AGE: 73 Location: [facility] Re08/30/19 SEX: F Status: DEP ER SPEC: [id number] AVELINA: 08/30/[address] [facility] [address]: Jacinta LOW REQ: [id number] RECD: 08/30/19 STATUS: ANNIE BORRERO DR: Yahir Pickett MD _ SOURCE: URINE SPDESC: ORDERED: Urine Culture COMMENTS: [id number] Procedure Result Reported Site Urine Culture Final 08/31/19- 1412 ML No growth of clinically significant organisms * ML - Main Lab . END OF REPORT DEPARTMENT OF PATHOLOGY, [address] [place] [address] Cuong Tellez M.D. Director [facility] # [id number] Procedures Date Code Description Status 11/02/2018 [id number] Mammogram Completed 06/23/2018 [id number] Colonoscopy Completed 09/22/2014 60021302 Mammogram Completed 01/20/2006 858336893 Bone Mineral Density Test Completed Medical Devices Description No Information Available Encounters Type Date Location Provider Dx Diagnosis Office Visit 09/13/2019 Main Office Aden Pickett I48.0 Paroxysmal atrial 2:00p M.D. fibrillation R53.83 Other fatigue I10 Essential (primary) hypertension G47.30 Sleep apnea, unspecified R14.0 Abdominal distension (gaseous) Assessments Date Code Description Provider 10/05/2019 K21.9 Gastro-esophageal reflux disease without MARANDA Barnett esophagitis 10/05/2019 R14.0 Abdominal distension (gaseous) MARANDA Barnett 10/05/2019 L43.9 Lichen planus, unspecified MARANDA Barnett 09/13/2019 I48.0 Paroxysmal atrial fibrillation Aden Pickett M.D. 09/13/2019 R53.83 Other fatigue Aden Pickett M.D. 09/13/2019 I10 Essential (primary) hypertension Aden Pickett M.D. 09/13/2019 G47.30 Sleep apnea, unspecified Aden Pickett M.D. 09/13/2019 R14.0 Abdominal distension (gaseous) Aden Pickett M.D. Plan of Treatment Future Appointment(s):10/19/2019 10:30 am - MARANDA Barnett at [facility] Dvfxoc4810/05/2019 - Bing Roberts PAK21.9 Gastro-esophageal reflux disease without esophagitisNew Medication:Xifaxan 200 mg - 1 tablet three times a day for 3 days.New Labs:Comp Metabolic-ALL Lab Compani, Ordered: 10/05/19CB Electronic-ALL Lab Compani, Ordered: 10/05/19Comments:Use fiber pills every day Take Omprazole in the morning Take rifaximin antibiotic 3x/ day for the next 3 days Increase water , avoid soda Follow up next weekR14.0 Abdominal distension ( gaseous)L43.9 Lichen planus, unspecifiedComments:Monitor [facility]:PCMHMedication Management Patient Understands medications he's taking? Yes Are there Barriers to Adherence? No Has the patient been asked about herbal supplements and therapies, and OTC meds ? Yes Care Plan1. Patient has been queried about patient's goals/ preferences and functional/lifestyle goals at relevant visits. Yes If relevant, describe: N/A2. Treatment goals as explained to the patient: above3. Are there barriers to meeting treatment goals? No If Yes, please describe:4. Self-Management goals as described to the patient: Yes As always, we strongly encourage a healthy diet and making physical activity a part of your every day life. If you have questions about how or where to start, please contact the office. Functional Status Description No Information Available Mental Status Description No Information Available Referrals Description No Information Available
--- OUTSIDE RECORDS SUMMARY | 2019-10-07 08:15 | XMS REPORT | Summary of Care ---
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 Sona Bryan NP [address] [address] Refer to Department Only (Routine) Status Reason Specialty Diagnoses / Referred By Referred To Procedures Contact Contact Pending Review Diagnoses 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 (Primary Dx); Gastroenterology/Hepa Sona Garcia NP Hepatic cyst tology [address] [place] [address] [id number] [place] [address] [phone] Allergies Active Allergy Reactions Severity Noted Date Comments Moxifloxacin Hcl Hives 04/07/2018 Ed A-Ceph Unknown Reaction 03/26/2018 Dofetilide Unknown Reaction 03/26/2018 Dronedarone Unknown Reaction 03/26/2018 Influenza Virus Vac Live Quad Unknown Reaction 03/26/2018 Moxifloxacin Unknown Reaction 03/26/2018 Sotalol Unknown Reaction 03/26/2018 Tetanus Antitoxin Unknown Reaction 03/26/2018 documented as of this encounter (statuses as of 09/30/2019) Medications Medication Sig Dispensed Refills Start Date End Date Status warfarin Take by mouth DAILY. 1.5 tabs 5 days/week 0 Active (COUMADIN) 2.5 MG 2 tabs 2 days/week Oral Tab Acetaminophen Take by mouth. 0 Active (ACETAMINOPHEN EXTRA STRENGTH) 500 MG Oral Cap diltiazem (CARTIA Take 120 mg by 0 Active XT) 120 MG Oral mouth DAILY. CAPSULE SR 24 HR potassium chloride Take 10 mEq by 0 Active (K-TAB) 10 MEQ mouth DAILY. Oral Tab CR Probiotic Product Take by mouth. 0 Active (PROBIOTIC-10 PO) valsartan (DIOVAN) Take 80 mg by 0 Active 80 MG Oral Tab mouth DAILY. dorzolamide Place 1 Drop in 0 Active (TRUSOPT) 2 % left eye TWICE Ophthalmic DAILY. Solution Omeprazole 40 MG Take 1 Cap by 30 Cap 11 09/30/2019 Active Oral CAPSULE mouth DAILY. DELAYED RELEASE Losartan Potassium Take by mouth 0 09/30/19 Discontinued (COZAAR) 100 MG DAILY. 20 Oral Tab furosemide (LASIX) Take 20 mg by 0 09/30/19 Discontinued 20 MG Oral Tab mouth DAILY. 20 Levalbuterol Take by 0 01/09/20 Discontinued Tartrate (XOPENEX inhalation. 20 HFA IN) predniSONE Take 2 Tabs by 14 Tab 0 07/13/2018 09/30/19 Discontinued (DELTASONE) 20 MG mouth DAILY. 20 Oral Tab fluticasone Take 2 Puffs by 1 Inhaler 1 07/13/2018 09/30/19 Discontinued (FLOVENT HFA) 44 inhalation 20 MCG/ACT Inhalation TWICE DAILY. Aerosol Ranitidine 150 MG Take 1 Cap by 60 Cap 5 01/26/2019 09/30/19 Discontinued Oral Cap mouth TWICE 20 DAILY. famotidine Take 20 mg by 0 09/30/19 Discontinued (PEPCID) 20 MG mouth DAILY. 20 (Alternative Oral Tab Therapy) documented as of this encounter (statuses as of 09/30/2019) Active Problems Problem Noted Date Disorder of lung 04/21/2018 Obesity 04/21/2018 Hepatic cyst 03/26/2018 Overview: [place] [facility] [place] GERD (gastroesophageal reflux disease) 03/26/2018 Supraventricular tachycardia 03/26/2018 Obstructive sleep apnea 03/26/2018 Hypertension 03/26/2018 Cataract 03/26/2018 SBO (small bowel obstruction) Atrial fibrillation Overview: sees Dr Godinez, s/p ablation procedure in 2015 Benign liver cyst Macular degeneration Overview: left eye, injections every 6-[address] Vernon Numbness and tingling of both feet Overview: ?neuropathy, mentioned by Dr Euceda Varicose vein of leg ARMEN on CPAP documented as of this encounter (statuses as of 09/30/2019) Resolved Problems Problem Noted Date Resolved Date Encounter to discuss colonoscopy results 07/09/2018 07/09/2018 History of atrioventricular shelton ablation 03/26/2018 06/25/2018 HTN (hypertension) 06/25/2018 documented as of this encounter (statuses as of 09/30/2019) Social History Tobacco Use Types Packs/Day Years Used Date Never Smoker Smokeless Tobacco: Never Used Alcohol Use Drinks/Week oz/Week Comments No Sex Assigned at Date Recorded Not on file Job Start Date Occupation Industry Not on file Not on file Not on file Travel History Travel Start Travel End No recent travel history available. documented as of this encounter Last Filed Vital Signs Vital Sign Reading Time Taken Comments Blood Pressure 148/98 09/30/2019 11:49 AM EST Pulse 72 09/30/2019 11:49 AM EST Temperature 36.8 09/30/2019 11:49 AM EST C (98.2 F) Respiratory Rate - - Oxygen Saturation - - Inhaled Oxygen Concentration - - Weight 98.9 kg (218 lb) 09/30/2019 11:49 AM EST Height 160 cm (5' 3") 09/30/2019 11:49 AM EST Body Mass Index 38.62 09/30/2019 11:49 AM EST documented in this encounter Patient Instructions Patient InstructionsMarciellSona negron NP - 09/30/2019 11:40 AM EST1. Stop the Pepcid, start omeprazole once daily on an empty stomach, preferable in the morning 2. Will need to repeat the upper endoscopy, will send order and referral to [facility] 3. Referral placed to a hepatobiliary surgeon in [place] 4. Follow up after the above Thank you for choosing the [facility] for your needs today! -Sona Bryan N.P. , Please call if you need to cancel or change your appt. time. Thank you for choosing [facility] for your health care needs, and for consulting with [facility] today. You may receive a survey following this visit, or after an upcoming hospital stay. As easy as it is to feel overloaded with surveys, we are required to send them out randomly and they do provide important feedback so that we may serve your needs in the best way. Please do take the few minutes required to complete the survey if you receive one. We get them too, after seeing the doctor, and they only take a few minutes to complete. documented in this encounter Progress Notes Sona Bryan NP - 09/30/2019 11:40 AM EST PATIENT: Alvina Baez : 1945 DATE OF SERVICE: 09/30/2019 REFERRING PRACTITIONER: Self-Referred PRIMARY CARE PROVIDER: Aden Pickett CHIEF COMPLAINT: Chief Complaint Patient presents with Follow-up Follow-up to recent CT abdomen. Subjective HISTORY OF PRESENT ILLNESS: Alvina Baez is a 73-y.o. female who presents for follow-up of recent CT which shows her knownright lobe hepatic cyst, which has increased in size since 2016 however has been stable since 2018, and possibly has decreased in size since her 02/2018 US performed at [place]. 09/17/2019 CT abd/pelv with contrast, at [facility], positive for [id number] right lobe hepatic cyst. 03/08/2018 hepatic US at [facility], positive for 16.4x13.4x14.3cm right lobe haptic cyst. 05/22/2016 hepatic US at [place], positive for 11.0x9.7x13.0cm right lobe hepatic cyst. She also reports for follow up of her history of Malcolm's, last EGD 2018 was negative for dysplasia. She has stopped her PPI's due to cost and has been on Pepcid. She reports morning nausea and fullness after meals with occasional night time reflux. She is concerned that her GERD symptoms may be related to her large hepatic cyst. She denies dysphagia, fatigue, nausea, vomiting, melena, hematemesis, hematochezia, constipation, diarrhea, jaundice, fevers, chills, night sweats, weight loss, easy bruising, chest pain, shortness of breath, dysuria, hematuria , pyuria, joint pains, acholic stools, dark urine or systemic pruritis. Current Outpatient Medications Medication Sig Acetaminophen (ACETAMINOPHEN EXTRA STRENGTH) 500 MG Oral Cap Take by mouth. diltiazem (CARTIA XT) 120 MG Oral CAPSULE SR 24 HR Take 120 mg by mouth DAILY. dorzolamide (TRUSOPT) 2 % Ophthalmic Solution Place 1 Drop in left eye TWICE DAILY. Omeprazole 40 MG Oral CAPSULE DELAYED RELEASE Take 1 Cap by mouth DAILY. potassium chloride (K-TAB) 10 MEQ Oral Tab CR Take 10 mEq by mouth DAILY. Probiotic Product (PROBIOTIC-10 PO) Take by mouth. valsartan (DIOVAN) 80 MG Oral Tab Take 80 mg by mouth DAILY. warfarin (COUMADIN) 2.5 MG Oral Tab Take by mouth DAILY. 1.5 tabs 5 days /week 2 tabs 2 days/week No current facility-administered medications for this visit. Allergies Allergen Reactions Avelox [Moxifloxacin Hcl] Hives Cephalexin [Ed A-Ceph] Unknown Reaction Dofetilide Unknown Reaction Dronedarone Unknown Reaction Influenza Virus Vac Live Quad Unknown Reaction Moxifloxacin Unknown Reaction Sotalol Unknown Reaction Tetanus Antitoxin Unknown Reaction REVIEW OF SYSTEMS: All remaining review of systems was negative except for as noted in the history of present illness/subjective. Objective PHYSICAL EXAMINATION: VITALS: BP (!) 148/98 | Pulse 72 | Temp 98.2 F (36.8 C) | Ht 5' 3" ( 1.6 m) | Wt 218 lb (98.9 kg) | BMI 38.62 kg/m Body mass index is 38.62 kg /m. GENERAL: alert, oriented, no acute distress. HEENT: No scleral icterus, MMM Psych: Affect normal Neck: no lymphadenopathy LUNGS: clear to auscultation bilaterally. HEART: regular rhythm, no murmurs, no gallops, no rubs. ABDOMEN: general exam: soft, non-tender, obese, Alicia's sign negative. Extrmities: no edema Skin: clear Neuro: gait normal, a&o x 3 RECTAL: exam deferred. IMPRESSION: ICD-9-CM ICD-10-CM 1. 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 Hepatic cyst 573.8 K76.89 REFER TO GENERAL SURGERY During this visit, I reviewed the relevant imaging, pathology reports, laboratory reports, and previous clinical notes. Additional counseling and preparation time (which represents > 50 % of total visit time) was necessary for data gathering, reviewing studies and discussing options, in excess of interviewing the patient and/or family members. This time was used to discuss the complex nature of the problem, various treatment options available and the expected outcomes of each to the patient/family's satisfaction. Questionably symptomatic hepatic cyst, will refer to hepatobiliary surgeon, will not likely need anyintervention given the stability seen on imaging since 2018. I discussed with the patient that I believer her "fullness" is likely related to uncontrolled GERD. 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 Plan PLAN: Patient Instructions 1. Stop the Pepcid, start omeprazole once daily on an empty stomach, preferable in the morning 2. Will need to repeat the upper endoscopy, will send order and referral to [facility] 3. Referral placed to a hepatobiliary surgeon in [place] 4. Follow up after the above Thank you for choosing the [facility] for your needs today! -Sona Bryan N.P. , Please call if you need to cancel or change your appt. time. Thank you for choosing [facility] for your health care needs, and for consulting with [facility] today. You may receive a survey following this visit, or after an upcoming hospital stay. As easy as it is to feel overloaded with surveys, we are required to send them out randomly and they do provide important feedback so that we may serve your needs in the best way. Please do take the few minutes required to complete the survey if you receive one. We get them too, after seeing the doctor, and they only take a few minutes to complete. Author: Sona Bryan NP 09/30/2019 12:43 documented in this encounter Plan of Treatment Name Type Priority Associated Diagnoses Order Schedule REFER TO GI Referral Routine Malcolm's esophagus Expected: 09/30/2019, without dysplasia Expires: 09/30/2020 EGD ([facility] / NON Referral Routine Malcolm's esophagus Expected: 2019, [place]) without dysplasia Expires: 09/30/2020 REFER TO GENERAL Referral Routine Hepatic cyst Expected: 09/30/2019, SURGERY Expires: 09/30/2020 Health Maintenance Due Date Last Done Comments MEDICARE ANNUAL WELLNESS VISIT 1945 DTaP/Tdap/Td Vaccines (1 - Tdap) 1956 DEPRESSION SCREENING 1957 HIV SCREENING 1960 LIPID DISORDER SCREENING 11/23/1963 HEPATITIS C SCREENING 1985 MAMMOGRAM (SCREENING) 1985 ZOSTER IMMUNIZATION SERIES (1 of 11/23/1995 2) FALL RISK ASSESSMENT 2010 OSTEOPOROSIS SCREENING 2010 PNEUMOCOCCAL 65+YRS (1 of 2 - 2010 PCV13) INFLUENZA VACCINE (#1) 2019 Colonoscopy 06/23/2028 06/23/2018 HEPATITIS A IMMUNIZATION SERIES Aged Out No longer eligible based on patient's age to complete this topic HPV IMMUNIZATION SERIES Aged Out No longer eligible based on patient's age to complete this topic MENINGOCOCCAL VACCINE IMM Aged Out No longer eligible based on patient's age to complete this topic documented as of this encounter Goals Goal Patient Goal Associated Recent Patient-Stated? Author Type Problems Progress Blood Pressure Blood Pressure 148/98 Elif Blanton, < 140/90 (09/30/2019 MD Cody 11:49 AM EST) Note: This is an individualized treatment (blood pressure) goal for Alvina Baez : Displayed above (on the left) is your goal for blood pressure control. Your most recent blood pressure is also shown above, on the right. You should try to achieve blood pressures that are lower than your goal listed above (on the left). Weight loss vs. 18 mo Lifestyle 0 (09/30/2019 11:49 AM EST) No Cody Blanton MD max (lbs) >= 10 Note: This is an individualized lifestyle goal for Alvina Baez: Your body mass index (BMI) is more than 30. You should lose weight. A reasonable starting goal is to lose 10 pounds. Displayed above is how many pounds you have lost thus far towards your 10 pound weight loss goal. Take all prescribed medications as directed Self-management Cody Desir MD Note: This is an individualized self-management goal for Alvina Baez: Please take all prescribed medications as directed. 1. Do not skip doses. If you cannot afford your medications, talk with your doctor. 2. Use a pill reminder system such as a pill box if needed. Your pharmacist can help you with this. 3. Contact your Pharmacy 5 days before your medication runs out. If you cannot take your medications for any reasons, talk with your doctor. 4. Please bring all of your medication bottles and inhalers (or a list of all your medications/inhalers) with you to every visit. Potential barriers to meeting all of your care plan goals will continue to be addressed on an ongoing basis. 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
[2019-10-07 08:39] VITALS: BP 159/69
--- NOTE | 2019-10-07 08:58 | UC ---
UC General HPI - HPI Summary HPI Summary: Multiple issues - she is being followed and was seen by her PCP a few days ago and is getting blood work and stool studies. She saw DEPARTMENT HEAD last week for her vaginal inflammation and was diagnosed with licen scelrosis. She is getting worked up for decrease appetite and early satiety - has a hard time eating lunch and gets nauseated. Also issue with constipation Elevated BP, that PCP is aware and is having headaches which is thought to be due to her BP This morning her urine looked like it had blood and was different in appearance. Has had ongoing urinary frequency. This morning dysuria. No fever or back pain Meds; REviewed - History of Current Complaint Chief Complaint: UCGU Stated Complaint: HEADACHE LOW GRADE FEVER URINARY Time Seen by Provider: 10/07/19 08:23 Pain Intensity: 4 - Allergy/Home Medications Allergies/Adverse Reactions: Allergies Allergy/AdvReac Type Severity Reaction Status Date / Time cephalexin Allergy Hives Verified 10/07/19 08:25 dofetilide [From Tikosyn] Allergy Tachycardia Verified 10/07/19 08:25 moxifloxacin [From Avelox] Allergy Hives Verified 10/07/19 08:25 Home Medications: Home Medications RX: Omeprazole 40 mg PO DAILY 10/07/19 [History Confirmed 10/07/19] PMH/Surg Hx/FS Hx/Imm Hx Previously Healthy: Yes Cardiovascular History: Hypertension - Surgical History Surgical History: Yes Surgery Procedure, Year, and Place: HIATAL HERNIA, RIGHT SHOULDER SURGERY, CARDIOVERSION WITH ABLASION 08/2015-11/2015, DEVIATED SEPTUM, WISDOM TEETH, Rt BREAST BIOPSY - W/ BIOPSY CLIP. Bilat cataract., R knee- benign tumor removed - Family History Known Family History: Positive: Diabetes, Respiratory Disease - sister with COPD , Non-Contributory - Social History Alcohol Use: Rare Substance Use Type: None Smoking Status (MU): Never Smoked Tobacco - Immunization History Most Recent Influenza Vaccination: refuses Most Recent Tetanus Shot: 2014 Most Recent Pneumonia Vaccination: at some point Review of Systems All Other Systems Reviewed And Are Negative: Yes Gastrointestinal: Positive: Nausea Genitourinary: Positive: Dysuria, Hematuria, Frequency Physical Exam Triage Information Reviewed: Yes Appearance: Well-Appearing Vital Signs: Initial Vital Signs Temp 98.1 F 10/07/19 08:27 Pulse 62 10/07/19 08:27 Resp 16 10/07/19 08:27 BP 159/69 10/07/19 08:27 Pulse Ox 98 10/07/19 08:27 Eyes: Positive: Other: - conjunctival hemorrhage in left eye ENT: Positive: Normal ENT inspection Neck: Positive: Supple, Nontender Respiratory: Positive: Lungs clear Cardiovascular: Positive: RRR, No Murmur Abdomen Description: Positive: Nontender, Other: - No CVA tenderness Course/Dx - Course Course Of Treatment: This is a 73 yr old with multiple complaints, most predominantely urinary symptoms U/A; consistent with a UTI Plan Start Macrobid as prescribed When your culture returns we will call you if you have to change antibiotics Continue drinking plenty of fluids Follow up with your PCP as scheduled to follow up on your lab work If symptoms persist or worsen, recommend follow up with your PCP or return to urgent care Follow up on Blood pressure - Diagnoses Provider Diagnosis: Urinary tract infection Discharge ED - Sign-Out/Discharge Documenting (check all that apply): Patient Departure All imaging exams completed and their final reports reviewed: No Studies - Discharge Plan Condition: Fair Disposition: HOME Prescriptions: Nitrofurantoin Monohyd/M-Cryst [Macrobid 100 mg Capsule] 100 mg PO BID #10 cap Patient Education Materials: Urinary Tract Infection in Women (ED) Referrals: Adne Pickett MD [Primary Care Provider] - Additional Instructions: Start Macrobid as prescribed When your culture returns we will call you if you have to change antibiotics Continue drinking plenty of fluids Follow up with your PCP as scheduled to follow up on your lab work If symptoms persist or worsen, recommend follow up with your PCP or return to urgent care - Billing Disposition and Condition Condition: FAIR Disposition: Home
--- NOTE | 2019-10-10 07:10 | UC ---
- Progress Note Progress Note: Final urine culture report reviewed: More than 1000 CFU/mL Escherichia coli Sensitive to Macrobid. Patient on Macrobid No change in plan Course/Dx - Diagnoses Provider Diagnoses: Urinary tract infection Discharge ED - Sign-Out/Discharge Documenting (check all that apply): Post-Discharge Follow Up All imaging exams completed and their final reports reviewed: No Studies - Discharge Plan Condition: Fair Disposition: HOME Prescriptions: Nitrofurantoin Monohyd/M-Cryst [Macrobid 100 mg Capsule] 100 mg PO BID #10 cap Patient Education Materials: Urinary Tract Infection in Women (ED) Referrals: Aden Pickett MD [Primary Care Provider] - Additional Instructions: Start Macrobid as prescribed When your culture returns we will call you if you have to change antibiotics Continue drinking plenty of fluids Follow up with your PCP as scheduled to follow up on your lab work If symptoms persist or worsen, recommend follow up with your PCP or return to urgent care - Billing Disposition and Condition Condition: FAIR Disposition: Home
--- NOTE | 2019-10-10 15:50 | UC ---
- Progress Note Progress Note: C/O difficulty urinating. E. coli sens to macrobid. on day 4. Will change to bactrim and add pyridium Course/Dx - Diagnoses Provider Diagnoses: Urinary tract infection Discharge ED - Sign-Out/Discharge Documenting (check all that apply): Post-Discharge Follow Up All imaging exams completed and their final reports reviewed: No Studies - Discharge Plan Condition: Fair Disposition: HOME Prescriptions: Phenazopyridine 200 mg (NF) [Pyridium 200 MG tab *] 200 mg PO TID PRN #6 tab PRN Reason: UTI symptoms Sulfamethox/Trimethoprim DS* [Bactrim DS 800/160 TAB*] 1 tab PO BID #10 tab Patient Education Materials: Urinary Tract Infection in Women (ED) Referrals: Aden Pickett MD [Primary Care Provider] - Additional Instructions: Start Macrobid as prescribed When your culture returns we will call you if you have to change antibiotics Continue drinking plenty of fluids Follow up with your PCP as scheduled to follow up on your lab work If symptoms persist or worsen, recommend follow up with your PCP or return to urgent care - Billing Disposition and Condition Condition: FAIR Disposition: Home
== END 2019-10-07 09:06 | disposition home or self-care (01) ==
LOC: UCCORT 08:05
DX: N39.0 Urinary tract infection, site not specified (principal); H11.32 Conjunctival hemorrhage, left eye; R63.8 Other symptoms and signs concerning food and fluid intake; R68.81 Early satiety; R51 Headache; I10 Essential (primary) hypertension; K59.00 Constipation, unspecified; Z88.1 Allergy status to other antibiotic agents; Z88.8 Allergy status to other drugs, medicaments and biological substances
CPT/HCPCS: 81003; 87077; 87086; 87186; 99212; G0463